=== PATIENT | female | born 1980 | race Caucasian/White ===

== ENCOUNTER 2020-09-17 05:25 | Emergency (ER) | payer MEDICAID ==
[~2020-09-17] VITALS: Ht 170.2 cm; Wt 137.7 kg
[2020-09-17 05:26] VITALS: Ht 170.2 cm; Wt 137.7 kg
[2020-09-17] MEDS ORDERED: GLUCOPHAGE500 MG PO (05:37)
[2020-09-17] MEDS ORDERED: GLIPIZIDE10 MG PO (05:37)
[2020-09-17] MEDS ORDERED: LISINOPRIL40 MG (05:37)
[2020-09-17] MEDS ORDERED: COREG12.5 MG PO (05:37)
[2020-09-17] MEDS ORDERED: GABAPENTIN100 MG (05:38)
[2020-09-17 06:36] LABS: BASOPHILS 0 % (0-2); EOSINOPHILS 0.3 % (0-7); HEMATOCRIT 40.8 % (36.0-48.0); HEMOGLOBIN 13.2 g/dL (12-16); IMMATURE GRANULOCYTES 0.2 % (0-5); LYMPHOCYTE ABS# 2.35 10x3/uL (1.18-3.74); LYMPHOCYTES 37.5 % (15-50); MCHC 32.4 g/dL (31.0-37.0); MCV 89.7 fL (80.0-100.0); NEUTROPHIL ABS# 3.44 10x3/uL (1.56-6.13); PLATELET COUNT 226 10x3/uL (130-400); RBC 4.55 10x6/uL (4.00-5.40); RDW 16.1 % (11.5-14.5); WBC 6.3 10x3/uL (4.8-10.8)
[2020-09-17 06:43] LABS: CALC OSMOLALITY 283 mosm/kg (275-300); CARBON DIOXIDE 25.1 mmol/L (21.0-32.0); CHLORIDE - SERUM 101 mmol/L (98-107); CREATININE - SERUM 0.9 mg/dL (0.6-1.3); GLUCOSE 285 mg/dL (74-106); POTASSIUM - SERUM 3.9 mmol/L (3.5-5.1); SODIUM 137 mmol/L (136-145); UREA NITROGEN 13 mg/dL (7-18); eGFR NON AFRICAN AMERICAN 73 mL/min (90-120)
[2020-09-17 07:02] LABS: ALBUMIN 3.4 g/dL (3.4-5.0); ALKALINE PHOSPHATASE 95 U/L (30-120); ALT (SGPT) 23 U/L (10-68); BILIRUBIN - TOTAL 0.15 mg/dL (0.2-1.3); CKMB 0.5 U/L (0.0-3.6); CREATINE KINASE 89 UL (21-215); PROTEIN - SERUM 7.7 g/dL (6.4-8.2)
[2020-09-17 07:03] LABS: TROPONIN-I < 0.017 ng/mL (0.000-0.060)
[2020-09-17 07:40] LABS: BILIRUBIN NEGATIVE (NEGATIVE); KETONE NEGATIVE (NEGATIVE); NITRITE NEGATIVE (NEGATIVE); UROBILINOGEN NORMAL mg/dL (< 2)
[2020-09-17 07:42] LABS: BACTERIA FEW HPF (NONE SEEN); SQUAMOUS EPITHELIAL OCC HPF (0-4); WHITE CELLS - URINE RARE HPF (0-4)
[2020-09-17 07:49] LABS: UDS - AMPHET NEGATIVE QUAL (NEGATIVE); UDS - BARB NEGATIVE QUAL (NEGATIVE); UDS - BENZO NEGATIVE QUAL (NEGATIVE); UDS - COCAINE NEGATIVE QUAL (NEGATIVE); UDS - OPIATE NEGATIVE QUAL (NEGATIVE); UDS - PCP NEGATIVE QUAL (NEGATIVE); UDS - THC NEGATIVE QUAL (NEGATIVE)
[2020-09-17] MEDS ORDERED: LISINOPRIL10 MG PO (08:11)
[2020-09-17] MEDS ORDERED: CLONIDINE HCL0.1 MG PO (08:11)
[2020-09-17 09:22] VITALS: BP 149/82
== END 2020-09-17 09:05 | disposition home or self-care (01) ==
LOC: D.ER 05:25
PROVIDERS: Family Medicine
DX: I10 Essential (primary) hypertension (principal); G43.909 Migraine, unspecified, not intractable, without status migrainosus; E11.9 Type 2 diabetes mellitus without complications; Z79.84 Long term (current) use of oral hypoglycemic drugs

== ENCOUNTER → 2020-09-17 | Emergency (ER) ==
[~2020-09-17] MED LIST: CLONIDINE HCL0.1 MG PO; COREG12.5 MG PO; GABAPENTIN100 MG; GLIPIZIDE10 MG PO; GLUCOPHAGE500 MG PO; LISINOPRIL10 MG PO; LISINOPRIL40 MG
== END | disposition home or self-care (01) ==
LOC: D.ER 05:20 → EDBD 05:20
DX: R51.9 Headache, unspecified (principal)